=== PATIENT | female | born 1945 | race Caucasian/White ===

== ENCOUNTER 2022-10-02 11:51 | Outpatient (CLI) | payer MEDICARE | END 2022-10-02 11:52 | disposition home or self-care (01) | LOC: SCSRAD 11:51 | PROVIDERS: ATTEND Family Medicine | DX: J18.9 Pneumonia, unspecified organism (principal) | CPT/HCPCS: 71046 ==

== ENCOUNTER 2022-11-10 13:45 | Outpatient (CLI) | payer MEDICARE | END 2022-11-10 13:46 | disposition home or self-care (01) | LOC: BICMAMMO 13:45 | PROVIDERS: ATTEND Family Medicine | DX: M81.0 Age-related osteoporosis without current pathological fracture (principal) | CPT/HCPCS: 77080 ==